=== PATIENT | female | born 1970 | race Asian ===

== ENCOUNTER 2022-01-22 06:28 | Observation (INO) | payer BC ==
[2022-01-18] MEDS: CEFAZOLIN SODIUM 1 GM VIAL IVP SCH (08:00)
[2022-01-18 11:16] LABS: CREATININE 0.7 mg/dL (0.5-1.5); POTASSIUM 4.2 mmol/L (3.5-5.1)
[2022-01-18 11:19] LABS: BASOPHILS % (AUTO) 0.8 % (0.0-5.0); EOSINOPHILS % (AUTO) 2.4 % (0.0-8.0); HEMATOCRIT 37.1 % (36-48); LYMPHOCYTES % (AUTO) 43.5 % (21.0-51.0); MEAN CORPUSCULAR HEMOGLOBIN 28.3 pg (27.0-33.0); MEAN CORPUSCULAR HGB CONC 32.1 g/dL (32.0-36.0); MEAN CORPUSCULAR VOLUME 88.1 fL (79-99); MONOCYTES % (AUTO) 8.3 % (3.0-13.0); NEUTROPHILS % (AUTO) 44.6 % (40.0-77.0); PLATELET COUNT (AUTO) 257 K/uL (130-400); RED BLOOD CELL COUNT(AUTO) 4.21 MIL/uL (4.00-5.50); RED CELL DISTRIBUTION WIDTH 13.8 % (11.0-15.5); WHITE BLOOD COUNT (AUTO) 4.9 K/uL (4.8-10.8)
[2022-01-18 12:07] LABS: INR 0.93 (0.85-1.15)
[2022-01-18 12:08] LABS: PARTIAL THROMBOPLASTIN TIME 27.6 SEC (26.3-35.5)
[2022-01-21 09:41] VITALS: BP 155/87
[2022-01-22] VITALS (27 sets, daily range): BP systolic 105–140; BP diastolic 52–92
[~2022-01-22] VITALS: Ht 152.4 cm; Wt 67.7 kg
[~2022-01-22 06:28] MED LIST: ASPI-1005 PO; DICL75TA5 PO; OLME20TA73 PO; [UNRECOGNIZED DRUG - CODE] PO; [UNRECOGNIZED DRUG - OTHER] PO
[2022-01-22] MEDS ORDERED: TRANEXAMIC ACID 1000MG/10ML ONE ×2 (06:40→09:30)
[2022-01-22] MEDS ORDERED: ROPIVACAINE 0.5% 5MG/ML 30ML IJ ONE (07:04)
[2022-01-22] MEDS ORDERED: PROPOFOL 10 MG/ML 20ML VIAL IV ONE (07:26)
[2022-01-22] MEDS ORDERED: PHENYLEPHRINE HCL 10 MG/ML 1ML VIAL IV ONE (07:26)
[2022-01-22] MEDS ORDERED: KETOROLAC 30MG VIAL (30MG/ML) ONE (07:26)
[2022-01-22] MEDS ORDERED: LIDOCAINE PF 100MG/5ML (2%) SYRINGE 5ML ONE (07:26)
[2022-01-22] MEDS ORDERED: ONDANSETRON 4MG INJ ONE (07:27)
[2022-01-22] MEDS ORDERED: NEOSTIGMINE 5MG/5ML SYR IV ONE (07:27)
[2022-01-22] MEDS ORDERED: GLYCOPYRROLATE 1 MG/5 ML SYRINGE ONE (07:27)
[2022-01-22] MEDS ORDERED: ROCURONIUM 10MG/1ML SYR 10 MG/ML ML ONE (07:28)
[2022-01-22] MEDS ORDERED: FENTANYL CITRATE PF 50 MCG/1 ML 2ML VIAL ONE ×2 (07:28→09:20)
[2022-01-22] MEDS ORDERED: MIDAZOLAM HCL 1 MG/ML 2ML VIAL ONE ×2 (07:28→07:30)
[2022-01-22] MEDS ORDERED: CALDOLOR 800MG+NS 250ML 250 ML IV SCH (07:30)
[2022-01-22] MEDS ORDERED: HYDROCODONE/ACETAMINOPHEN 5/325 MG TAB PO PRN (07:30)
[2022-01-22] MEDS ORDERED: KCL 20 MEQ ERTAB PO PRN (07:30)
[2022-01-22] MEDS ORDERED: LIDOCAINE HCL-MPF 1% 2ML VIAL IV PRN (07:30)
[2022-01-22] MEDS: ACETAMINOPHEN 500 MG TABLET PO SCH ×3 (07:30→23:02)
[2022-01-22] MEDS: 0.9%NACL 1000ML 1,000 ML IV SCH ×2 (07:30→17:30)
[2022-01-22] MEDS ORDERED: POTASSIUM CHLORIDE 20MEQ/100ML 100 ML IV PRN (07:30)
[2022-01-22] MEDS ORDERED: MORPHINE 4 MG SYG IVP PRN (07:30)
[2022-01-22] MEDS ORDERED: ONDANSETRON 4MG INJ IVP PRN (07:30)
[2022-01-22] MEDS ORDERED: POTASSIUM CHLORIDE 10% ELIXIR 20 MEQ/15 ML UDCUP PO PRN (07:30)
[2022-01-22] MEDS: LACTATED RINGERS 1000ML 1,000 ML IV SCH ×4 (08:11→16:29)
[2022-01-22] MEDS: ASPIRIN 81 MG EC TAB PO SCH ×2 (09:00→20:02)
[2022-01-22] MEDS: POLYETHYLENE GLYCOL 3350 17 GM POWD.PACK PO SCH (09:00)
[2022-01-22] MEDS: FAMOTIDINE 20MG TAB PO SCH ×2 (09:00→20:02)
[2022-01-22] MEDS: CEFAZOLIN SODIUM 1 GM VIAL IVP SCH ×3 (09:28→20:06)
[2022-01-22] MEDS ORDERED: ROCURONIUM BROMIDE 10MG/1ML 5ML VL ONE ×3 (09:50→11:31)
[2022-01-22] MEDS ORDERED: DEXAMETHASONE SOD PHOSPHATE 4 MG/ML 1ML VIAL ONE (11:48)
[2022-01-22] MEDS: TRAMADOL HCL 50 MG TABLET PO SCH ×3 (12:00→23:02)
[2022-01-22] MEDS ORDERED: HYDROMORPHONE 1 MG INJ ONE (12:50)
[2022-01-22] MEDS ORDERED: MEPERIDINE-PF 25 MG/ML SYG ONE (13:07)
[2022-01-22] MEDS: HYDROCODONE/ACETAMINOPHEN 10/325 MG TAB PO PRN (15:05)
[2022-01-22] MEDS: CALDOLOR 800MG+NS 250ML 250 ML IV SCH ×2 (16:16→23:02)
[2022-01-23] MEDS: 0.9%NACL 1000ML 1,000 ML IV SCH (03:30)
[2022-01-23 04:39] VITALS: BP 112/66
[2022-01-23] MEDS: TRAMADOL HCL 50 MG TABLET PO SCH ×2 (05:35→12:00)
[2022-01-23 05:41] LABS: HEMATOCRIT 32.1 % (36-48); MEAN CORPUSCULAR HEMOGLOBIN 29.1 pg (27.0-33.0); MEAN CORPUSCULAR HGB CONC 32.4 g/dL (32.0-36.0); MEAN CORPUSCULAR VOLUME 89.7 fL (79-99); RED BLOOD CELL COUNT(AUTO) 3.58 MIL/uL (4.00-5.50); RED CELL DISTRIBUTION WIDTH 14.3 % (11.0-15.5); WHITE BLOOD COUNT (AUTO) 15.9 K/uL (4.8-10.8)
[2022-01-23 05:58] LABS: CREATININE 0.8 mg/dL (0.5-1.5); POTASSIUM 4.1 mmol/L (3.5-5.1)
[2022-01-23 08:07] VITALS: BP 136/64
[2022-01-23] MEDS: HYDROCODONE/ACETAMINOPHEN 10/325 MG TAB PO PRN (08:09)
[2022-01-23] MEDS: CALDOLOR 800MG+NS 250ML 250 ML IV SCH (08:36)
[2022-01-23] MEDS: ASPIRIN 81 MG EC TAB PO SCH (08:37)
[2022-01-23] MEDS: ACETAMINOPHEN 500 MG TABLET PO SCH ×2 (08:37→15:42)
[2022-01-23] MEDS: FAMOTIDINE 20MG TAB PO SCH (08:38)
[2022-01-23] MEDS: POLYETHYLENE GLYCOL 3350 17 GM POWD.PACK PO SCH (08:38)
[2022-01-23 12:25] VITALS: BP 102/64
[2022-01-25] MEDS ORDERED: BISACODYL 10 MG SUPP.RECT RC PRN (07:30)
== END 2022-01-23 17:30 | disposition home or self-care (01) ==
LOC: DAH 06:28 → DAHIP 06:29 → 4DH 13:30
PROVIDERS: ADMIT Orthopaedic Surgery; ATTEND Orthopaedic Surgery
DX: M16.11 Unilateral primary osteoarthritis, right hip (principal); Z20.822 Contact with and (suspected) exposure to COVID-19; I10 Essential (primary) hypertension; Q21.12 Patent foramen ovale; Z79.899 Other long term (current) drug therapy; Z96.642 Presence of left artificial hip joint; Z79.82 Long term (current) use of aspirin; Z98.890 Other specified postprocedural states; Z90.710 Acquired absence of both cervix and uterus
CPT/HCPCS: 36415; 64447; 73502; 73503; 80048; 85025; 85027; 85610; 85730; 87426; 93005; 96365; 96366; 96375; 96376; 97039; A4606; G0378; J0690; J1100; J1170; J1741; J1885; J2001; J2175; J2250; J2370; J2405; J2704; J2710; J2795; J3010; J3490; J7030; J7120